=== PATIENT | male | born 1990 | race Caucasian/White ===

== ENCOUNTER 2021-01-07 06:00 | Inpatient (IN) | payer BC, MEDICAID ==
[~2021-01-07] VITALS: Ht 170.2 cm; Wt 65.8 kg
[2021-01-07] MEDS ORDERED: IPRATROPIUM BROM 0.5 MG/2.5ML INH SOL NEB ONE (06:30)
[2021-01-07] MEDS ORDERED: SODIUM CHLORIDE 0.9% 1,000 ML IV ONE (06:30)
[2021-01-07] MEDS ORDERED: MAGNESIUM SULFATE 1GM/100ML 100 ML IV ONE (06:30)
[2021-01-07] MEDS ORDERED: methylPREDNISolone SOD SUCC 125 MG/2 ML VL IV ONE ×2 (06:30→11:15)
[2021-01-07] MEDS ORDERED: ALBUTEROL SULF 2.5 MG/0.5ML(0.5%) NEB SOLN NEB ONE (06:30)
[2021-01-07 06:54] LABS: Basophils # (auto) 0 10 ^3/uL (0-0.2); Basophils % (auto) 0.5 % (0.0-2.0); Eosinophils # (auto) 0.5 10 ^3/uL (0-0.8); Eosinophils % (auto) 5.9 % (0.0-7.0); Hematocrit 47.4 % (41.0-53.0); Hemoglobin 16.2 g/dL (13.5-17.5); Lymphocytes % (auto) 22.6 % (10.0-50.0); Mean Corpuscular Hemoglobin 32.7 pg (28.0-32.0); Mean Corpuscular Hgb Conc. 34.2 g/dL (32.0-36.0); Mean Corpuscular Volume 95.6 fL (80.0-100.0); Monocytes # (auto) 0.7 10 ^3/uL (0-1.3); Neutrophils # (auto) 5.6 10 ^3/uL (1.6-8.6); Platelet Count (auto) 256 10^3/uL (140-450); Red Blood Cells 4.96 10^6/uL (4.5-5.90); Red Cell Distribution Width 14.1 % (11.8-14.3); White Blood Cell 8.9 10^3/uL (4.4-10.8)
[2021-01-07 07:14] LABS: Albumin 3.7 g/dL (3.4-5.0); Anion Gap 6 (5-15); Blood Urea Nitrogen 13 mg/dL (7-18); Calcium 8.4 mg/dL (8.5-10.1); Carbon Dioxide 28 mmol/L (21-32); Chloride 106 mmol/L (98-107); Glucose 97 mg/dL (74-106); Potassium 3.9 mmol/L (3.5-5.1); Sodium 140 mmol/L (136-145)
[2021-01-07 07:16] LABS: Alanine Aminotransferase 26 U/L (16-61); Aspartate Aminotransferase 17 U/L (15-37); BUN/Creatinine Ratio 11.5; GFR African American 97 mL/min; GFR Non-African American 80 mL/min
[2021-01-07 07:20] LABS: Alkaline Phosphatase 72 U/L (45-117); Bilirubin, Total 0.3 mg/dL (0.2-1.0); Total Protein 7.3 g/dL (6.4-8.2)
[2021-01-07] MEDS ORDERED: ACETAMINOPHEN 325 MG TAB PO ONE (08:15)
[2021-01-07 10:25] VITALS: BP 118/57
[2021-01-07] MEDS ORDERED: NITROGLYCERIN 0.4 MG SL TAB SL PRN (10:30)
[2021-01-07] MEDS ORDERED: MORPHINE SULF INJ 2 MG/ML SYRINGE 1ML IV PRN ×2 (10:30→11:30)
[2021-01-07] MEDS ORDERED: LACTULOSE 20Gm/30ML SOLN PO PRN (11:30)
[2021-01-07] MEDS ORDERED: THIAMINE 100mg/ml INJ (200mg/2ml VIAL) IV ONE (11:30)
[2021-01-07] MEDS ORDERED: LORazepam 2MG/ML-1ML VIAL IV PRN (11:30)
[2021-01-07] MEDS ORDERED: chlordiazePOXIDE HCL 25 MG CAP PO PRN (11:30)
[2021-01-07] MEDS ORDERED: SODIUM CHLORIDE 0.9% 1,000 ML IV SCH (11:30)
[2021-01-07] MEDS ORDERED: DOXYCYCLINE 100MG/250ML 250 ML IV SCH (11:30)
[2021-01-07] MEDS ORDERED: traMADol HCL 50 MG TAB PO PRN (11:30)
[2021-01-07] MEDS ORDERED: ALBUTEROL SULF 2.5 MG/0.5ML(0.5%) NEB SOLN NEB PRN (11:30)
[2021-01-07] MEDS ORDERED: PROMETHAZINE HCL 25 MG/ML 1ML IV PRN (11:30)
[2021-01-07] MEDS ORDERED: ALBUTEROL SULF 2.5 MG/0.5ML(0.5%) NEB SOLN NEB SCH (12:00)
[2021-01-07] MEDS ORDERED: chlordiazePOXIDE HCL 25 MG CAP PO SCH ×2 (12:00)
[2021-01-07] MEDS ORDERED: IPRATROPIUM BROM 0.5 MG/2.5ML INH SOL NEB SCH (12:00)
[2021-01-07] MEDS ORDERED: methylPREDNISolone SOD SUCC 40 MG/ML VL IV SCH (12:00)
[2021-01-07] MEDS ORDERED: FAMOTIDINE 20 MG TAB PO SCH (22:00)
[2021-01-08] MEDS ORDERED: THIAMINE 100mg/ml INJ (200mg/2ml VIAL) IV SCH (10:00)
[2021-01-08] MEDS ORDERED: ENOXAPARIN SOD 40 MG/0.4 ML SYRINGE SC SCH (10:00)
== END 2021-01-07 12:05 | disposition left against medical advice (07) | DRG 203 ==
LOC: EDUNIT# 06:00 → ER 06:00 → EDBD 06:00 → TELE 10:21 → TELE-WESTW 11:50
PROVIDERS: ADMIT Internal Medicine; ATTEND Internal Medicine
DX: J45.901 Unspecified asthma with (acute) exacerbation (principal); F12.90 Cannabis use, unspecified, uncomplicated; F17.210 Nicotine dependence, cigarettes, uncomplicated; R06.03 Acute respiratory distress; Z53.29 Procedure and treatment not carried out because of patient's decision for other reasons; Z20.822 Contact with and (suspected) exposure to COVID-19
CPT/HCPCS: 36415; 71045; 80053; 83880; 84484; 85025; 87426; 93005; 94640; 96365; 96375; 99291; G0378